=== PATIENT | female | born 1965 | race Caucasian/White ===

== ENCOUNTER → 2021-07-08 | Emergency (ER) | payer SELFPAY ==
[~2021-07-08] VITALS: Ht 160 cm; Wt 59.0 kg
[~2021-07-08] MED LIST: ACETAMINOPHEN 325MG TABLET PO ONE; BACITRACIN ZINC OINT UDPKT TOP ONE; LIDOCAINE HCL/PF 1% 10 MG/ML 5ML VIAL INFIL ONE; TETANUS, DIPHTHERIA, PERTUSSIS VAC/PF 0.5ML (>10YR OLD) IM ONE
[2021-07-08 00:10] VITALS: BP_SYST 152
== END ==
LOC: ER 00:16
DX: S01.01XA Laceration without foreign body of scalp, initial encounter (principal); X58.XXXA Exposure to other specified factors, initial encounter; Y93.89 Activity, other specified; Y92.89 Other specified places as the place of occurrence of the external cause; Y99.8 Other external cause status
CPT/HCPCS: 99283